=== PATIENT | male | born 1960 | race Asian ===

== ENCOUNTER 2024-08-02 06:50 | Inpatient (IN) | payer BC ==
[~2024-08-02] VITALS: Ht 172.7 cm; Wt 71.8 kg
[2024-08-02 08:24] LABS: BASOPHILS % (AUTO) 0.3 % (0.0-2.0); EOSINOPHILS % (AUTO) 0.2 % (1.0-6.0); HEMATOCRIT 46.3 % (41-53); LYMPHOCYTES # (AUTO) 0.9 K/uL (1.0-4.8); LYMPHOCYTES % (AUTO) 6.6 % (22.0-44.0); MEAN CORPUSCULAR HEMOGLOBIN 29.6 pg (26.0-34.0); MEAN CORPUSCULAR HGB CONC 32.5 G/dL (31.0-37.0); MEAN CORPUSCULAR VOLUME 91 fL (80-100); MONOCYTES # (AUTO) 0.5 K/uL (0.1-1.0); PLATELET COUNT (AUTO) 209 K/uL (150-450); RED BLOOD CELL COUNT(AUTO) 5.08 MIL/uL (4.50-5.90); RED CELL DISTRIBUTION WIDTH 14.1 % (11.5-14.5); WHITE BLOOD COUNT (AUTO) 13.5 K/uL (4.5-11.0)
[2024-08-02 08:28] LABS: NEUTROPHILS % (AUTO) 88.9 % (40.0-70.0)
[2024-08-02 08:36] LABS: ANION GAP 7 mmol/L (8-16); CALCIUM, TOTAL 8.7 mg/dL (8.8-10.5); CARBON DIOXIDE 26 mmol/L (22-29); CHLORIDE 103 mmol/L (98-107); CREATININE 1.18 mg/dL (0.60-1.30); GLOMERULAR FILTR. RATE CALC > 60 mL/min (>60); GLUCOSE,RANDOM 111 mg/dL (70-110); POTASSIUM 3.9 mmol/L (3.5-5.1); SODIUM SERUM 136 mmol/L (136-145); UREA NITROGEN, BLOOD 24 mg/dL (7-18)
[2024-08-02 08:37] LABS: LIPASE 34 U/L (16-77)
[2024-08-02 08:40] LABS: ALBUMIN 3.7 g/dL (3.4-5.0); BILIRUBIN,DIRECT 0.1 mg/dL (0.00-0.20); BILIRUBIN,TOTAL 0.5 mg/dL (0.1-1.0); TOTAL PROTEIN, SERUM 7.4 g/dL (6.4-8.2)
[2024-08-02] MEDS ORDERED: SODIUM CHLORIDE 0.9% 100 ML ONE ×2 (08:47→20:38)
[2024-08-02] MEDS ORDERED: IOHEXOL 350 MG/ML 100 ML VIAL ONE ×2 (08:47→20:38)
[2024-08-02 09:11] LABS: APPEARANCE,URINE CLEAR (CLEAR); BILIRUBIN,URINE NEGATIVE (NEGATIVE); COLOR,URINE LIGHT YELLOW (YELLOW); GLUCOSE, URINE (UA) >=1000 mg/dL (NEGATIVE); KETONES,URINE TRACE mg/dL (NEGATIVE); LEUKOCYTE ESTERASE ,URINE NEGATIVE (NEGATIVE); NITRATE,URINE NEGATIVE (NEGATIVE); OCCULT BLOOD,URINE NEGATIVE (NEGATIVE); PROTEIN,URINE NEGATIVE (NEGATIVE); SPECIFIC GRAVITIY, URINE 1.037 (1.003-1.030); UROBILINOGEN,URINE <=1.0 mg/dL (<=1.0)
[2024-08-02 09:33] LABS: BACTERIA,URINE None Seen /HPF (None Seen); RBC,URINE None Seen /HPF (0-2); SQUAMOUS EPITHELIAL CELL,UR Few /LPF (None Seen); WBC,URINE None Seen /HPF (0-5)
[2024-08-02 09:34] LABS: URIC ACID CRYSTALS,URINE Many /LPF (None Seen)
[2024-08-02] MEDS: DICYCLOMINE HCL 10 MG CAPSULE PO ONE (10:22)
[2024-08-02] MEDS: PIPERACILLIN SODIUM/TAZOBACTAM 4.5 GM in DEXTROSE 5%-WATER 100 ML IV ONE (11:41)
[2024-08-02 14:50] VITALS: BP 121/69; PULSE 77; RESP 16; TEMP 98.5; O2SAT 100
[2024-08-02] MEDS ORDERED: CHOL25TA4 PO (15:00)
[2024-08-02] MEDS ORDERED: METO25 PO (15:00)
[2024-08-02] MEDS ORDERED: ASPI-1444 PO (15:00)
[2024-08-02] MEDS ORDERED: ATOR-2 PO (15:00)
[2024-08-02] MEDS ORDERED: TICA90TA PO (15:00)
[2024-08-02] MEDS ORDERED: EMPA10TA3 PO (15:00)
[2024-08-02] MEDS ORDERED: DUTA0.5C38 PO (15:00)
[2024-08-02] MEDS ORDERED: ZOLPIDEM TARTRATE 5 MG TABLET PO PRN (18:00)
[2024-08-02] MEDS ORDERED: ALBUTEROL SULFATE 2.5 MG/0.5 ML NEB SOLUTION NEB PRN (18:00)
[2024-08-02] MEDS ORDERED: ONDANSETRON HCL 4 MG/2 ML VIAL IVP PRN (18:00)
[2024-08-02] MEDS ORDERED: HYDROCODONE/ACETAMINOPHEN 5-325 MG TABLET PO PRN (18:00)
[2024-08-02] MEDS ORDERED: IPRATROPIUM BROMIDE 0.5 MG/2.5 ML NEB SOLUTION NEB PRN (18:00)
[2024-08-02] MEDS ORDERED: BISACODYL 10 MG RECTAL RECTAL SUPPOSITORY PR PRN (18:00)
[2024-08-02] MEDS ORDERED: MAGNESIUM HYDROXIDE SUSPENSION 30 ML UDCUP PO PRN (18:00)
[2024-08-02] MEDS ORDERED: MORPHINE SULFATE 2 MG/ML SYRINGE IVP PRN (18:00)
[2024-08-02] MEDS ORDERED: ACETAMINOPHEN 325 MG TABLET PO PRN (18:00)
[2024-08-02 20:00] VITALS: BP 131/68; PULSE 87; RESP 18; TEMP 98.5; O2SAT 95
[2024-08-02] MEDS: METOPROLOL TARTRATE 25 MG TABLET PO SCH (20:46)
[2024-08-02] MEDS: DOCUSATE SODIUM 100 MG CAPSULE PO SCH (20:46)
[2024-08-02] MEDS: DEXTROSE 5%-0.45% SODIUM CHL 1,000 ML IV SCH (20:47)
[2024-08-02] MEDS: PIPERACILLIN/TAZO 3.375 GM/D5W 50 ML IV SCH (20:47)
[2024-08-02] MEDS: HEPARIN SODIUM,PORCINE 5,000 UNITS/ML VIAL SQ SCH (23:38)
[2024-08-03 04:17] VITALS: BP 95/55; PULSE 60; RESP 18; TEMP 98.2
[2024-08-03] MEDS: PANTOPRAZOLE SODIUM 40 MG/VIAL IVP SCH (08:14)
[2024-08-03] MEDS: DUTASTERIDE 0.5 MG CAPSULE PO SCH (08:19)
[2024-08-03] MEDS: ATORVASTATIN CALCIUM 40 MG TABLET PO SCH (08:19)
[2024-08-03] MEDS: ASPIRIN 81 MG DR TABLET PO SCH (08:20)
[2024-08-03] MEDS: CHOLECALCIFEROL (VIT D3) 1,000 UNITS [25 MCG] TABLET PO SCH (08:20)
[2024-08-03] MEDS: EMPAGLIFLOZIN 10 MG TABLET PO SCH (08:20)
[2024-08-03] MEDS ORDERED: RINGERS SOLUTION,LACTATED 1,000 ML IV ONE (08:21)
[2024-08-03] MEDS ORDERED: SODIUM CHLORIDE 0.9% 0 ML ONE (08:53)
[2024-08-03] MEDS ORDERED: HYDROmorphone HCL 2 MG/ML SYRINGE IVP PRN (11:00)
[2024-08-03] MEDS ORDERED: MEPERIDINE-PF 25 MG/ML VIAL IVP PRN (11:00)
[2024-08-03] MEDS ORDERED: FentaNYL CITRATE PF 100 MCG/2 ML VIAL IVP PRN (11:00)
[2024-08-03] MEDS: ETHYL ALCOHOL 62% ANTISEPTIC NASAL SANITIZER 0.6 ML AMPUL NASAL ONE (11:16)
[2024-08-03] MEDS: CHLORHEXIDINE GLUCONATE 2% TOWELETTE [2'S/6'S] TP ONE (11:16)
[2024-08-03] MEDS ORDERED: ROCURONIUM BROMIDE 10 MG/ML 5 ML VIAL IVP ONE (12:00)
[2024-08-03] MEDS ORDERED: DEXAMETHASONE SOD PHOS 4 MG/ML VIAL IVP ONE (12:00)
[2024-08-03] MEDS ORDERED: PROPOFOL 1% 20 ML VIAL IVP ONE (12:00)
[2024-08-03] MEDS ORDERED: LIDOCAINE/PF 2% 5 ML VIAL IM ONE (12:00)
[2024-08-03] MEDS ORDERED: CeFAZolin SODIUM 1 GM VIAL IVP ONE (12:00)
[2024-08-03] MEDS ORDERED: 0.9% SODIUM CHLORIDE 10 ML VIAL IVP ONE (12:00)
[2024-08-03] MEDS ORDERED: MIDAZOLAM HCL 2 MG/2 ML VIAL IVP ONE (12:00)
[2024-08-03] MEDS ORDERED: SUGAMMADEX SODIUM 200 MG/2 ML VIAL IVP ONE (12:00)
[2024-08-03] MEDS ORDERED: ONDANSETRON HCL 4 MG/2 ML VIAL IVP ONE (12:00)
[2024-08-03] MEDS ORDERED: FentaNYL CITRATE PF 100 MCG/2 ML VIAL IVP ONE (12:00)
[2024-08-03] MEDS ORDERED: KETOROLAC TROMETHAMINE 60 MG/2 ML VIAL IM ONE (12:00)
[2024-08-03] MEDS: LIDOCAINE 2%/EPI 1:200,000/PF 20 ML VIAL ONE (13:06)
[2024-08-03] MEDS: BUPIVACAINE HCL/PF 0.5% 30 ML VIAL ONE (13:07)
[2024-08-03] MEDS ORDERED: ACETAMINOPHEN 500 MG TABLET PO PRN (13:30)
[2024-08-03] MEDS ORDERED: ONDANSETRON HCL 4 MG/2 ML VIAL IVP PRN (13:30)
[2024-08-03] MEDS ORDERED: HYDROCODONE/ACETAMINOPHEN 5-325 MG TABLET PO PRN (13:30)
[2024-08-03 14:22] VITALS: BP 115/70; PULSE 63; RESP 17; TEMP 97.9; O2SAT 96
[2024-08-03 15:04] VITALS: BP 103/74; PULSE 61; RESP 18; TEMP 97.7; O2SAT 99
[2024-08-03 16:19] VITALS: BP 103/63; PULSE 63; RESP 18; TEMP 97.7; O2SAT 97
[2024-08-03] MEDS: RINGERS SOLUTION,LACTATED 1,000 ML IV ONE (16:30)
[2024-08-03 20:36] VITALS: BP 112/74; PULSE 76; RESP 18; TEMP 97.7; O2SAT 99
[2024-08-03] MEDS ORDERED: SODIUM CHLORIDE 0.9% 500 ML IV ONE (23:32)
[2024-08-04 08:20] VITALS: BP 118/70; PULSE 73; RESP 18; TEMP 98.1; O2SAT 100
[2024-08-04] MEDS: OXYGEN THERAPY IH SCH (09:37)
[2024-08-04] MEDS ORDERED: AMOX-457 PO (13:17)
== END 2024-08-04 15:40 | disposition home or self-care (01) | DRG 399 ==
LOC: EMS 06:50 → EDH 13:45 → 6S 14:21 → 4E 08-03 16:03
PROVIDERS: ADMIT Hospitalist; ATTEND Hospitalist
PROC: 0DTJ4ZZ Resection of Appendix, Percutaneous Endoscopic Approach (ICD-10-PCS; principal; 2024-08-03 12:00)
DX: K35.80 Unspecified acute appendicitis (principal); E78.00 Pure hypercholesterolemia, unspecified; I25.10 Atherosclerotic heart disease of native coronary artery without angina pectoris; Z71.6 Tobacco abuse counseling; I10 Essential (primary) hypertension; Z79.82 Long term (current) use of aspirin; Z95.5 Presence of coronary angioplasty implant and graft; Z72.0 Tobacco use; Z79.899 Other long term (current) drug therapy
CPT/HCPCS: 71046; 74177; 80048; 80076; 81001; 83690; 85025; 86850; 86900; 86901; 87081; 88304; 93005; 99285; G0378; J0690; J1100; J1644; J1885; J2250; J2405; J2470; J2543; J2704; J3010; J3490; J7030; J7040; J7050; J7060; J7120; 36415-L1; 36415-TC; Z7610